=== PATIENT | female | born 1995 | race Caucasian/White ===

== ENCOUNTER 2016-11-15 14:43 | Emergency (ER) | payer OTHER ==
[2016-11-15 15:08] VITALS: BP 129/60
--- NOTE | 2016-11-15 15:43 | EDM.PDOC ---
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 Past medical history: As per history of present illness and as reviewed below otherwise noncontributory. Surgical history: As per history of present illness and as reviewed below otherwise noncontributory. Social history: No reported history of drug or alcohol abuse. Family history: As per history of present illness and as reviewed below otherwise noncontributory. Physical exam: Alert oriented female denies any complaints of pain HEENT: Atraumatic, normocehpalic, pupils reactive, negative for conjunctival pallor or scleral icterus, mucous membranes moist, throat clear, neck supple, nontender, trachea midline. Lungs: Clear to auscultation, breath sounds equal bilaterally, chest non tender. Heart: S1S2, regular, negative for clicks, rubs, or JVD. Abdomen: Soft, nondistended, nontender. Negative for masses or hepatossplenmegaly. Negative for costovertebral tenderness. Pelvis: Stable nontender. Genitourinary: Deferred. Rectal: Deferred Extremities: Atraumatic, negative for cords or calf pain. Neurovascular unremarkable. Neuro: Awake, alert, oriented. Cranial nerves II through XII unremarkable. Cerebellum unremarkable. Motor and sensory unremarkable throughout. Exam nonfocal. Discussed case with patient and significant other. 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 Diagnostics: [UA quantitative hCG first trimester ultrasound] Therapeutics: [] Impression: [Suspicious for nonviable ] Plan: [Referred to HIGH SCHOOL PRINCIPAL Recommended for repeat ultrasound in 2 weeks] Definitive disposition and diagnosis as appropriate pending reevaluation and review of above. Location: other (no pain) Severity: mild - Related Data Allergies/ADRs: Allergies Allergy/AdvReac Type Severity Reaction Status Date / Time No Known Allergies Allergy Verified 11/15/16 15:05 Home Meds: Home Meds . [No Known Home Meds] 09/30/16 [History] Past Medical History - Past Health History Medical/Surgical History: Denies Medical/Surgical History Neurological History: Reports: Other (see below) Other Neuro History: increased CSF Social & Family History - Family History Family Medical History: Noncontributory - Tobacco Use Smoking Status *Q: Never Smoker - Caffeine Use Caffeine Use: Reports: None - Recreational Drug Use Recreational Drug Use: No ED ROS GENERAL - Review of Systems Review Of Systems: ROS reveals no pertinent complaints other than HPI. ED EXAM, GI/ABD - Physical Exam Exam: See Below Course - Vital Signs Last Recorded V/S: Last Vital Signs Temp 37.0 C 11/15/16 15:05 Pulse 74 11/15/16 15:05 Resp 18 11/15/16 15:05 BP 129/60 11/15/16 15:05 Pulse Ox 100 11/15/16 15:05 - Orders/Labs/Meds Orders: Active Orders 24 hr Category Date Time Status OB Transvaginal [US] Stat Exams 11/15/16 15:41 Taken Labs: Laboratory Tests 11/15/16 11/15/16 Range/Units 15:15 15:22 HCG, Quant 6619.6 mIU/mL Urine Color YELLOW Urine Appearance CLEAR Urine pH 6.0 (5.0-8.0) Ur Specific [place] 1.025 (1.001-1.035) Urine Protein NEGATIVE (NEGATIVE) mg/dL Urine Glucose (UA) NEGATIVE (NEGATIVE) mg/dL Urine Ketones NEGATIVE (NEGATIVE) mg/dL Urine Occult Blood LARGE H (NEGATIVE) Urine Nitrite NEGATIVE (NEGATIVE) Urine Bilirubin NEGATIVE (NEGATIVE) Urine Urobilinogen 0.2 (<2.0) EU/dL Ur Leukocyte Esterase NEGATIVE (NEGATIVE) Urine RBC 5-7 (0-2/HPF) Urine WBC 0-2 (0-5/HPF) Ur Epithelial Cells FEW (NONE-FEW) Urine Bacteria FEW (NEGATIVE) Departure - Departure Time of Disposition: 17:43 Disposition: Home, Self-Care 01 Condition: good Clinical Impression: Threatened Referrals: PCP,None [Primary Care Provider] - Soham Pate MD [Physician] - Forms: ED Department Discharge Additional Instructions: The following information is given to patients seen in the emergency department who are being discharged to home. This information is to outline your options for follow-up care. We provide all patients seen in our emergency department with a follow-up referral. The need for follow-up, as well as the timing and circumstances, are variable depending upon the specifics of your emergency department visit. If you don't have a primary care physician on staff, we will provide you with a referral. We always advise you to contact your personal physician following an emergency department visit to inform them of the circumstance of the visit and for follow-up with them and/or the need for any referrals to a consulting specialist. The emergency department will also refer you to a specialist when appropriate. This referral assures that you have the opportunity for followup care with a specialist. All of these measure are taken in an effort to provide you with optimal care, which includes your followup. Under all circumstances we always encourage you to contact your private physician who remains a resource for coordinating your care. When calling for followup care, please make the office aware that this follow-up is from your recent emergency room visit. If for any reason you are refused follow-up, please contact the [facility] emergency department at and asked to speak to the emergency department charge nurse. Bleeding worsen return to the emergency room for further evaluation Referral has been placed to see Dr. Pate for followup [facility] [address] [place] [phone] - My Orders Last 24 Hours: My Active Orders 11/15/16 15:41 OB Transvaginal [US] Stat - Assessment/Plan Last 24 Hours: My Active Orders 11/15/16 15:41 OB Transvaginal [US] Stat
--- NOTE | 2016-11-18 18:40 | US ---
EXAM DATE: 11/15/16 PATIENT'S AGE: 21 Patient: JULIET LUNSFORD Facility: [place], [place] Site . Site : 1995 Study: US OB Pelvis [id number]/10/2017 4:29:24 PM Ordering Physician: Doctor Redding Final Report: HISTORY: Spontaneous bleeding. FINDINGS: Multiple grayscale static images from a transabdominal and transvaginal pelvic ultrasound were evaluated. Uterus is retroverted on transvaginal images. The endometrium is thickened. An intrauterine gestational sac is present with a mean sac diameter of 1.3 cm consistent with 6 weeks 1 day. No pole, yolk sac or cardiac motion is seen. The right ovary measures 3.7 x 2.4 x 2.5 cm. It contains a 1.9 x 1.7 x 2.5 cm simple cyst most likely the corpus luteum. There is normal blood flow within the right ovary. The left ovary measures 3.1 x 1.8 x 1.9 cm and is normal appearance with normal blood flow. There is no fluid in the cul-de-sac. IMPRESSIONS: 1. 1.3 cm intrauterine gestational sac consistent with 6 weeks 1 day. It does not contain a yolk sac, pole or cardiac motion. While this is suspicious for a nonviable or blighted ovum, the size of the gestational sac is too small for confirmation. Consider follow up exam in 2 weeks to determine if there is development of a normal . 2. 2 cm cyst within the right ovary most likely the corpus luteum. Dictated by Shruthi Drake MD @ 11/15/2016 5:03:27 PM Dictated by: Shruthi Drake MD @ 11/15/2016 17:04:10 (Electronic Signature) Report Signed by Proxy and Original Signed Document filed in the Medical Record. JESSICA
== END 2016-11-15 17:46 | disposition home or self-care (01) ==
LOC: MW.ED 14:43
DX: O20.0 Threatened abortion (principal); Z3A.11 11 weeks gestation of pregnancy
CPT/HCPCS: 36415; 76817; 76817-26; 81001; 84702; 99283; 99284-25

== ENCOUNTER 2016-11-19 13:15 | Emergency (ER) | payer OTHER ==
[2016-11-19] MEDS ORDERED: Sodium Chloride 0.9% 1,000 ML IV ONE (13:28)
[2016-11-19] MEDS ORDERED: Morphine 2 MG/ML Syringe IVPUSH ONE (13:28)
[2016-11-19] MEDS ORDERED: Sodium Chloride 0.9% 2.5 ML Syringe FLUSH PRN (13:28)
[2016-11-19] MEDS ORDERED: Sodium Chloride 0.9% 10 ML Syringe FLUSH PRN (13:28)
[2016-11-19] MEDS ORDERED: Morphine 4 MG/ML Syringe IVPUSH ONE (14:29)
--- NOTE | 2016-11-19 14:47 | EDM.PDOC ---
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 At that time an ultrasound was done which showed a 1.3 centimeter gestational sac with no pole, yolk sac or heartbeat. Dated at 6 weeks one day. Review of systems: As per history of present illness and below otherwise all systems reviewed and negative. Past medical history: As per history of present illness and as reviewed below otherwise noncontributory. Surgical history: As per history of present illness and as reviewed below otherwise noncontributory. Social history: No reported history of drug or alcohol abuse. Family history: As per history of present illness and as reviewed below otherwise noncontributory. Physical exam: General: Well developed, well nourished in NAD HEENT: Atraumatic, normocephalic, pupils reactive, negative for conjunctival pallor or scleral icterus, mucous membranes moist, throat clear, neck supple, nontender, trachea midline. Lungs: Clear to auscultation, breath sounds equal bilaterally, chest nontender. Heart: S1S2, regular, negative for clicks, rubs, or JVD. Abdomen: Soft, nondistended, nontender. Negative for masses or hepatosplenomegaly. Negative for costovertebral tenderness. Pelvis: Stable nontender. Genitourinary: Pelvic exam done by Dr. Salter and myself showing tissue in the os was removed and appeared to be a fetus. Rectal: Deferred. Extremities: Atraumatic, negative for cords or calf pain. Neurovascular unremarkable. Neuro: Awake, alert, oriented. Cranial nerves II through XII unremarkable. Cerebellum unremarkable. Motor and sensory unremarkable throughout. Exam nonfocal. 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 Definitive disposition and diagnosis as appropriate pending reevaluation and review of above. - Related Data Allergies/ADRs: Allergies Allergy/AdvReac Type Severity Reaction Status Date / Time No Known Allergies Allergy Verified 11/19/16 13:23 Home Meds: Home Meds . [No Known Home Meds] 09/30/16 [History] Past Medical History - Past Health History Medical/Surgical History: Denies Medical/Surgical History Neurological History: Reports: Other (see below) Other Neuro History: increased CSF Social & Family History - Family History Family Medical History: Noncontributory - Tobacco Use Smoking Status *Q: Never Smoker Second Hand Smoke Exposure: No - Caffeine Use Caffeine Use: Reports: None - Recreational Drug Use Recreational Drug Use: No ED ROS GENERAL - Review of Systems Review Of Systems: See Below (See history of present illness) ED EXAM - Physical Exam Exam: See Below (See history of present illness) Course - Vital Signs Last Recorded V/S: Last Vital Signs Temp 37.0 C 11/19/16 15:27 Pulse 84 11/19/16 13:24 Resp 17 11/19/16 15:27 BP 115/59 L 11/19/16 15:27 Pulse Ox 98 11/19/16 15:27 - Orders/Labs/Meds Orders: Active Orders 24 hr Category Date Time Status Sodium Chloride 0.9% [Saline Flush] Med 11/19/16 13:28 Active 10 ml FLUSH ASDIRECTED PRN Sodium Chloride 0.9% [Saline Flush] Med 11/19/16 13:28 Active 2.5 ml FLUSH ASDIRECTED PRN Peripheral IV Insertion Adult [OM.PC] Stat Oth 11/19/16 13:28 Ordered Medication Orders Sodium Chloride (Saline Flush) 10 ml FLUSH ASDIRECTED PRN PRN Reason: Keep Vein Open Sodium Chloride (Saline Flush) 2.5 ml FLUSH ASDIRECTED PRN PRN Reason: Keep Vein Open Labs: Laboratory Tests 11/19/16 11/19/16 11/19/16 Range/Units 13:45 13:45 13:45 WBC 7.35 (4.0-11.0) K/uL RBC 4.32 (4.30-5.90) M/uL Hgb 12.7 (12.0-16.0) g/dL Hct 38.1 (36.0-46.0) % MCV 88.2 (80.0-98.0) fL MCH 29.4 (27.0-32.0) pg MCHC 33.3 (31.0-37.0) g/dL RDW Std Deviation 47.5 (28.0-62.0) fl RDW Coeff of Kahlil 15 (11.0-15.0) % Plt Count 255 (150-400) K/uL MPV 9.50 (7.40-12.00) fL Neut % (Auto) 58.8 (48.0-80.0) % Lymph % (Auto) 31.8 (16.0-40.0) % [place] % (Auto) 8.0 (0.0-15.0) % Eos % (Auto) 1.0 (0.0-7.0) % Baso % (Auto) 0.4 (0.0-1.5) % Neut # 4.3 (1.4-5.7) K/uL Lymph # 2.3 (0.6-2.4) K/uL [place] # 0.6 (0.0-0.8) K/uL Eos # 0.1 (0.0-0.7) K/uL Baso # 0.0 (0.0-0.1) K/uL Nucleated RBC % 0.0 /100WBC Nucleated RBCs # 0 K/uL HCG, Quant 3873.7 mIU/mL Blood Type A POSITIVE Meds: Medications Generic Name Dose Route Start Last Admin Trade Name Freq PRN Reason Stop Dose Admin Sodium Chloride 10 ml 11/19/16 13:28 Saline Flush FLUSH ASDIRECTED PRN Keep Vein Open Sodium Chloride 2.5 ml 11/19/16 13:28 Saline Flush FLUSH ASDIRECTED PRN Keep Vein Open Discontinued Medications Generic Name Dose Route Start Last Admin Trade Name Freq PRN Reason Stop Dose Admin Sodium Chloride 1,000 mls @ 999 mls/hr 11/19/16 13:28 11/19/16 13:46 Normal Saline IV 11/19/16 14:28 999 mls/hr .Bolus ONE Administration Morphine Sulfate 4 mg 11/19/16 13:28 11/19/16 13:48 Morphine IVPUSH 11/19/16 13:29 4 mg ONETIME ONE Administration Morphine Sulfate 4 mg 11/19/16 14:29 11/19/16 14:33 Morphine IVPUSH 11/19/16 14:30 4 mg ONETIME ONE Administration Departure - Departure Time of Disposition: 15:32 Disposition: Home, Self-Care 01 Condition: good Clinical Impression: Spontaneous Referrals: PCP,None [Primary Care Provider] - Forms: ED Department Discharge Additional Instructions: The following information is given to patients seen in the emergency department who are being discharged to home. This information is to outline your options for follow-up care. We provide all patients seen in our emergency department with a follow-up referral. The need for follow-up, as well as the timing and circumstances, are variable depending upon the specifics of your emergency department visit. If you don't have a primary care physician on staff, we will provide you with a referral. We always advise you to contact your personal physician following an emergency department visit to inform them of the circumstance of the visit and for follow-up with them and/or the need for any referrals to a consulting specialist. The emergency department will also refer you to a specialist when appropriate. This referral assures that you have the opportunity for follow-up care with a specialist. All of these measure are taken in an effort to provide you with optimal care, which includes your follow-up. Under all circumstances we always encourage you to contact your private physician who remains a resource for coordinating your care. When calling for follow-up care, please make the office aware that this follow-up is from your recent emergency room visit. If for any reason you are refused follow-up, please contact the [facility] Emergency Department at and asked to speak to the emergency department charge nurse. [facility] - [facility] [address] [place] [phone] - My Orders Last 24 Hours: My Active Orders 11/19/16 13:28 Sodium Chloride 0.9% [Saline Flush] 10 ml FLUSH ASDIRECTED PRN Sodium Chloride 0.9% [Saline Flush] 2.5 ml FLUSH ASDIRECTED PRN Peripheral IV Insertion Adult [OM.PC] Stat - Assessment/Plan Last 24 Hours: My Active Orders 11/19/16 13:28 Sodium Chloride 0.9% [Saline Flush] 10 ml FLUSH ASDIRECTED PRN Sodium Chloride 0.9% [Saline Flush] 2.5 ml FLUSH ASDIRECTED PRN Peripheral IV Insertion Adult [OM.PC] Stat
[2016-11-19 15:57] VITALS: BP 112/67
== END 2016-11-19 15:55 | disposition home or self-care (01) ==
LOC: MW.ED 13:15
DX: O03.9 Complete or unspecified spontaneous abortion without complication (principal); Z3A.11 11 weeks gestation of pregnancy
CPT/HCPCS: 84702; 85025; 86900; 86901; 96361; 96374; 96376; 99284; J2270; J7040; 88305; 99283

== ENCOUNTER 2017-05-28 16:03 | Emergency (ER) | payer MEDICAID, OTHER ==
[2017-05-28] MEDS ORDERED: Ondansetron 4 MG Tab.DIS PO ONE (16:38)
[2017-05-28] MEDS ORDERED: HYDROmorphone 1 MG/ML Syringe IM ONE (16:38)
[2017-05-28 16:40] VITALS: BP 116/57
--- NOTE | 2017-05-28 17:45 | EDM.PDOC ---
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 Review of systems: As per history of present illness and below otherwise all systems reviewed and negative. Past medical history: As per history of present illness and as reviewed below otherwise noncontributory. Surgical history: As per history of present illness and as reviewed below otherwise noncontributory. Social history: No reported history of drug or alcohol abuse. Family history: As per history of present illness and as reviewed below otherwise noncontributory. Physical exam: General: Well developed, well nourished in NAD HEENT: Atraumatic, normocephalic, pupils reactive, negative for conjunctival pallor or scleral icterus, mucous membranes moist, throat clear, neck supple, nontender, trachea midline. Lungs: Clear to auscultation, breath sounds equal bilaterally, chest nontender. Heart: S1S2, regular, negative for clicks, rubs, or JVD. Abdomen: Soft, nondistended, nontender. Negative for masses or hepatosplenomegaly. Negative for costovertebral tenderness. Pelvis: Stable nontender. Genitourinary: Deferred. Rectal: Deferred. Extremities: Atraumatic, negative for cords or calf pain. Neurovascular unremarkable. Neuro: Awake, alert, oriented. Cranial nerves II through XII unremarkable. Cerebellum unremarkable. Motor and sensory unremarkable throughout. Exam nonfocal. Diagnostics: []HCG negative VC normal Therapeutics: []Dilaudid and Zofran given Impression: []Abnormal menstrual bleeding Plan: []Ibuprofen and warm packs or pain follow-up with FAMILY PRESERVATION OFFICER patient has an appointment tomorrow Definitive disposition and diagnosis as appropriate pending reevaluation and review of above. hypogastric area Pain Score (Numeric/FACES): 10 - Related Data Allergies Allergy/AdvReac Type Severity Reaction Status Date / Time No Known Allergies Allergy Verified 05/28/17 16:36 Home Meds: Home Meds . 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 History: Reports: , Spontaneous Neurological History: Reports: Other (See Below) Other Neuro History: increased CSF Social & Family History - Family History Family Medical History: Noncontributory - Tobacco Use Smoking Status *Q: Never Smoker Second Hand Smoke Exposure: No - Caffeine Use Caffeine Use: Reports: None - Recreational Drug Use Recreational Drug Use: No ED ROS GENERAL - Review of Systems Review Of Systems: See Below ED EXAM, RENAL/ - Physical Exam Exam: See Below (See history of present illness) Course - Vital Signs Last Recorded V/S: Last Vital Signs Temp 36.6 C 05/28/17 16:03 Pulse 123 H 05/28/17 16:03 Resp 20 05/28/17 16:03 BP 116/57 L 05/28/17 16:03 Pulse Ox 98 05/28/17 16:03 - Orders/Labs/Meds Orders: Active Orders 24 hr Category Date Time Status CHLAMYDIA TRACHOMATIS/GC AMPLF Stat Lab 05/28/17 17:07 Received TRICH/KRYSTYNA/CAND BY DNA PROBE [MOLEC] Stat Lab 05/28/17 17:09 Ordered Labs: Laboratory Tests 05/28/17 05/28/17 Range/Units 16:52 16:52 WBC 10.54 (4.0-11.0) K/uL RBC 4.69 (4.30-5.90) M/uL Hgb 13.9 (12.0-16.0) g/dL Hct 41.5 (36.0-46.0) % MCV 88.5 (80.0-98.0) fL MCH 29.6 (27.0-32.0) pg MCHC 33.5 (31.0-37.0) g/dL RDW Std Deviation 45.2 (28.0-62.0) fl RDW Coeff of Kahlil 14 (11.0-15.0) % Plt Count 277 (150-400) K/uL MPV 9.90 (7.40-12.00) fL Neut % (Auto) 69.3 (48.0-80.0) % Lymph % (Auto) 23.9 (16.0-40.0) % [place] % (Auto) 6.5 (0.0-15.0) % Eos % (Auto) 0.1 (0.0-7.0) % Baso % (Auto) 0.2 (0.0-1.5) % Neut # (Auto) 7.3 H (1.4-5.7) K/uL Lymph # (Auto) 2.5 H (0.6-2.4) K/uL [place] # (Auto) 0.7 (0.0-0.8) K/uL Eos # (Auto) 0.0 (0.0-0.7) K/uL Baso # (Auto) 0.0 (0.0-0.1) K/uL Nucleated RBC % 0.0 /100WBC Nucleated RBCs # 0 K/uL HCG, Quant < 1.2 mIU/mL Meds: Medications Discontinued Medications Generic Name Dose Route Start Last Admin Trade Name Freq PRN Reason Stop Dose Admin Hydromorphone HCl 1 mg 05/28/17 16:38 05/28/17 16:51 Dilaudid IM 05/28/17 16:39 1 mg ONETIME ONE Administration Ondansetron HCl 4 mg 05/28/17 16:38 05/28/17 16:50 Zofran Odt PO 05/28/17 16:39 4 mg ONETIME ONE Administration Departure - Departure Time of Disposition: 17:46 Disposition: Home, Self-Care 01 Condition: Good Clinical Impression: Abnormal uterine bleeding unrelated to menstrual cycle - Discharge Information Referrals: PCP,None [Primary Care Provider] - Additional Instructions: The following information is given to patients seen in the emergency department who are being discharged to home. This information is to outline your options for follow-up care. We provide all patients seen in our emergency department with a follow-up referral. The need for follow-up, as well as the timing and circumstances, are variable depending upon the specifics of your emergency department visit. If you don't have a primary care physician on staff, we will provide you with a referral. We always advise you to contact your personal physician following an emergency department visit to inform them of the circumstance of the visit and for follow-up with them and/or the need for any referrals to a consulting specialist. The emergency department will also refer you to a specialist when appropriate. This referral assures that you have the opportunity for follow-up care with a specialist. All of these measure are taken in an effort to provide you with optimal care, which includes your follow-up. Under all circumstances we always encourage you to contact your private physician who remains a resource for coordinating your care. When calling for follow-up care, please make the office aware that this follow-up is from your recent emergency room visit. If for any reason you are refused follow-up, please contact the [facility] Emergency Department at and asked to speak to the emergency department charge nurse. Ibuprofen, Paxil lower abdomen follow-up with FAMILY PRESERVATION OFFICER as scheduled tomorrow [facility] - [facility] [address] [place] [phone] - My Orders Last 24 Hours: My Active Orders 05/28/17 17:07 CHLAMYDIA TRACHOMATIS/GC AMPLF Stat 05/28/17 17:09 TRICH/KRYSTYNA/CAND BY DNA PROBE [MOLEC] Stat - Assessment/Plan Last 24 Hours: My Active Orders 05/28/17 17:07 CHLAMYDIA TRACHOMATIS/GC AMPLF Stat 05/28/17 17:09 TRICH/KRYSTYNA/CAND BY DNA PROBE [MOLEC] Stat
== END 2017-05-28 17:59 | disposition home or self-care (01) ==
LOC: MW.ED 16:03
DX: N93.9 Abnormal uterine and vaginal bleeding, unspecified (principal)
CPT/HCPCS: 36415; 84702; 85025; 87491; 87591; 96372; 99284; A9270; J1170; 99282

== ENCOUNTER 2017-09-24 22:14 | Emergency (ER) | payer OTHER ==
--- NOTE | 2017-09-24 22:32 | EDM.PDOC ---
ED HPI GENERAL MEDICAL PROBLEM - General Chief Complaint: Lower Extremity Injury/Pain Stated Complaint: PT HURT RT FOOT Time Seen by Provider: 09/24/17 22:16 - History of Present Illness INITIAL COMMENTS - FREE TEXT/NARRATIVE: HISTORY AND PHYSICAL: History of present illness: Patient 22-year-old female presents with concern of acute right foot injury that occurred when she kicked a chair she denies other trauma concern Review of systems: As per history of present illness and below otherwise all systems reviewed and negative. Past medical history: As per history of present illness and as reviewed below otherwise noncontributory. Surgical history: As per history of present illness and as reviewed below otherwise noncontributory. Social history: No reported history of drug or alcohol abuse. Family history: As per history of present illness and as reviewed below otherwise noncontributory. Physical exam: HEENT: Atraumatic, normocephalic, pupils reactive, negative for conjunctival pallor or scleral icterus, mucous membranes moist, throat clear, neck supple, nontender, trachea midline. Lungs: Clear to auscultation, breath sounds equal bilaterally, chest nontender. Heart: S1S2, regular, negative for clicks, rubs, or JVD. Abdomen: Soft, nondistended, nontender. Negative for masses or hepatosplenomegaly. Negative for costovertebral tenderness. Pelvis: Stable nontender. Genitourinary: Deferred. Rectal: Deferred. Extremities: Patient has some pain and swelling of her right foot this is nonlocalized are some small swelling noted no gross deformity no point tenderness no crepitation CMS neurovascular exam are unremarkable Neuro: Awake, alert, oriented. Cranial nerves II through XII unremarkable. Cerebellum unremarkable. Motor and sensory unremarkable throughout. Exam nonfocal. Diagnostics: X-ray right foot Therapeutics: To be determined Impression: #1 acute right foot injury Definitive disposition and diagnosis as appropriate pending reevaluation and review of above. right big toe Pain Score (Numeric/FACES): 10 - Related Data Allergies Allergy/AdvReac Type Severity Reaction Status Date / Time No Known Allergies Allergy Verified 09/24/17 22:22 Home Meds: Home Meds . [No Known Home Meds] 09/24/17 [History] Past Medical History - Past Health History Medical/Surgical History: Denies Medical/Surgical History [employer] History: Reports: , Spontaneous Neurological History: Reports: Other (See Below) Other Neuro History: increased CSF Social & Family History - Family History Family Medical History: Noncontributory - Tobacco Use Smoking Status *Q: Never Smoker Second Hand Smoke Exposure: No - Caffeine Use Caffeine Use: Reports: None - Recreational Drug Use Recreational Drug Use: No Review of Systems - Review of Systems Review Of Systems: ROS reveals no pertinent complaints other than HPI. ED EXAM, GENERAL - Physical Exam Exam: See Below (See dictation) Course - Vital Signs Last Recorded V/S: Last Vital Signs Temp 36.6 C 09/24/17 22:14 Pulse 95 09/24/17 22:14 Resp 20 09/24/17 22:14 BP 125/98 H 09/24/17 22:14 Pulse Ox 94 L 09/24/17 22:14 - Orders/Labs/Meds Orders: Active Orders 24 hr Category Date Time Status Foot Comp Min 3V Rt [CR] Stat Exams 09/24/17 22:31 Taken Labs: Laboratory Tests 09/24/17 Range/Units 22:35 Urine HCG, Qual POSITIVE (NEGATIVE) Departure - Departure Time of Disposition: 23:28 Disposition: Home, Self-Care 01 Condition: Good Clinical Impression: Foot injury - Discharge Information Referrals: PCP,None [Primary Care Provider] - Forms: ED Department Discharge Additional Instructions: The following information is given to patients seen in the emergency department who are being discharged to home. This information is to outline your options for follow-up care. We provide all patients seen in our emergency department with a follow-up referral. The need for follow-up, as well as the timing and circumstances, are variable depending upon the specifics of your emergency department visit. If you don't have a primary care physician on staff, we will provide you with a referral. We always advise you to contact your personal physician following an emergency department visit to inform them of the circumstance of the visit and for follow-up with them and/or the need for any referrals to a consulting specialist. The emergency department will also refer you to a specialist when appropriate. This referral assures that you have the opportunity for followup care with a specialist. All of these measure are taken in an effort to provide you with optimal care, which includes your followup. Under all circumstances we always encourage you to contact your private physician who remains a resource for coordinating your care. When calling for followup care, please make the office aware that this follow-up is from your recent emergency room visit. If for any reason you are refused follow-up, please contact the [facility] emergency department at and asked to speak to the emergency department charge nurse. [facility] - Podiatry [address] [place] [id number] Fax: [phone] Tylenol as directed postop shoe as discussed crutches as directed call to schedule appointment with podiatry clinic above return as needed as discussed] - My Orders Last 24 Hours: My Active Orders 09/24/17 22:31 Foot Comp Min 3V Rt [CR] Stat - Assessment/Plan Last 24 Hours: My Active Orders 09/24/17 22:31 Foot Comp Min 3V Rt [CR] Stat
[2017-09-25 00:42] VITALS: BP 120/85
--- NOTE | 2017-09-25 17:23 | CR ---
EXAM DATE: 09/24/17 PATIENT'S AGE: 22 Patient: JULIET LUNSFORD Facility: [place], [place] Site . Site : 1995 Study: XRay Extremity Right Foot [id number]/[id number] 11:12:35 PM Ordering Physician: Radha Ford Final Report: INDICATION: Pain. Stubbed first three toes on chair. TECHNIQUE: Three views of the right foot COMPARISON: None FINDINGS: Bones: Small corner fracture along the base of the proximal phalanx of the 2nd right toe with intra-articular extension. Joint spaces: Unremarkable. Soft tissues: Unremarkable. IMPRESSION: Small corner fracture along the base of the proximal phalanx of the 2nd right toe with intra-articular extension Dictated by Kevin Ball MD @ 09/24/2017 11:27:15 PM Dictated by: Kevin Ball MD @ 09/24/2017 23:27:21 (Electronic Signature) Report Signed by Proxy. JESSICA
== END 2017-09-24 22:45 | disposition home or self-care (01) ==
LOC: MW.ED 22:14
DX: S99.921A Unspecified injury of right foot, initial encounter (principal); W22.8XXA Striking against or struck by other objects, initial encounter
CPT/HCPCS: 73630-26-RT; 73630-RT; 81025; 99283